=== PATIENT | male | born 1945 | race African-American/Black ===

== ENCOUNTER 2018-04-08 13:09 | Emergency (ER) | payer OTHER ==
[2018-04-08] MEDS ORDERED: Dexamethasone 10 MG/ML VIAL ONE (13:38)
== END 2018-04-08 14:00 | disposition home or self-care (01) ==
LOC: ERS 13:09
DX: M47.9 Spondylosis, unspecified (principal); G89.29 Other chronic pain; M54.6 Pain in thoracic spine; E11.9 Type 2 diabetes mellitus without complications; I10 Essential (primary) hypertension; Z87.891 Personal history of nicotine dependence; Z79.899 Other long term (current) drug therapy
CPT/HCPCS: 96374; J1100